=== PATIENT | male | born 1995 | race Asian ===

== ENCOUNTER 2018-12-09 20:55 | Emergency (ER) | payer SELFPAY ==
[~2018-12-09] VITALS: Ht 165.1 cm; Wt 65.8 kg
[2018-12-09 21:10] VITALS: BP 118/68
[2018-12-09] MEDS ORDERED: AMOX1TAB10 PO (22:03)
--- NOTE | 2018-12-09 22:03 | PHYS DOC ---
Past Medical History Past Medical History: No Pertinent History Past Surgical History: No Surgical History Alcohol Use: None Drug Use: None Adult General Chief Complaint Chief Complaint: ANIMAL BITE HPI HPI Patient is a 23 year old male who presents with at 1900 tonight was a bit in the right buttock by a [place]. Patient states he is up-to-date on tetanus shot. Patient states that the dog is fully vaccinated. Review of Systems Review of Systems Integument: Dog bite to right buttock. Denies rash or skin lesions [] All other systems were reviewed and found to be within normal limits, except as documented in this note. Allergies Allergies Allergies Coded Allergies Type Severity Reaction Last Updated Verified No Known Drug Allergies 12/09/18 No Physical Exam Physical Exam Constitutional: Well developed, well nourished, no acute distress, non-toxic appearance. [] Skin: Right but talks dog bite. (See note ). Warm, dry, no erythema, no rash. [] Extremities: No tenderness, no cyanosis, no clubbing, ROM intact, no edema. [] Neurologic: Alert and oriented X 3, normal motor function, normal sensory function, no focal deficits noted. [] Psychologic: Affect normal, judgement normal, mood normal. [] Current Patient Data Vital Signs Vital Signs Date Time Temp Pulse Resp B/P (MAP) Pulse Ox O2 Delivery O2 Flow Rate FiO2 12/09/18 21:10 98.8 78 18 118/68 (85) 96 Room Air 98.8 EKG EKG [] Radiology/Procedures Radiology/Procedures [] Course & Med Decision Making Course & Med Decision Making Patient is a 23 year old male who presents with at 1900 tonight was a bit in the right buttock by a [place]. Patient states he is up-to-date on tetanus shot. Patient states that the dog is fully vaccinated. Patient rates pain around a 2 out of 10. And dry. Alert and oriented. Ambulatory with a steady gait. There are 3 separate tooth abrasions to the right buttock. Bleeding is controlled. There is no redness or signs of infection. There is no swelling or tenderness. Patient is told that he does have a primary care that he can return here for 8 hours for a wound recheck. I also educated him on signs of infection. Patient is told to take the antibiotic fully and to keep the area clean. The area is cleaned with chlorhexidine and covered with gauze. Dragon Disclaimer Dragon Disclaimer This electronic medical record was generated, in whole or in part, using a voice recognition dictation system. Departure Departure Impression: Primary Impression: Animal bite Disposition: HOME, SELF-CARE Condition: STABLE Referrals: NO PCP (PCP) Patient Instructions: Animal Bite Additional Instructions: Watch for signs of infections such as increased redness, drainage, increased pain, fever, swelling. Take antibiotic until it is gone. Follow up with a primary care doctor or he can return here for a wound recheck. Scripts Amoxicillin/Potassium Clav (AMOX TR-K CLV 500-125 MG TAB) 1 Each Tablet 1 TAB PO BID, #20 TAB Prov: SANJAY MCGREGOR APRN 12/09/18 SANJAY MCGREGOR APRN Dec 09, 2018 22:03
== END 2018-12-09 22:15 | disposition home or self-care (01) ==
LOC: ER 20:55
DX: S31.815A Open bite of right buttock, initial encounter (principal); W54.0XXA Bitten by dog, initial encounter; Y93.89 Activity, other specified; Y92.89 Other specified places as the place of occurrence of the external cause; Y99.8 Other external cause status
CPT/HCPCS: 99283